=== PATIENT | female | born 1940 | race Caucasian/White ===

== ENCOUNTER 2016-07-01 09:21 | Day surgery (SDC) | payer MEDICARE, OTHER ==
[~2016-07-01] VITALS: Ht 165.1 cm; Wt 88.0 kg
[~2016-07-01 09:21] MED LIST: 0.9% Sodium Chloride 1,000 ML IV SCH; ATRV10T PO; CITA10TA14 PO; FENO48TA15 PO; HYDR12.5 PO; Lactated Ringer's 1,000 ML IV ONE; Lidocaine PF 2% 5 mL Inj MUC_MEMBRM PRN; Lidocaine PF 2% 5 mL Inj MUC_MEMBRM SCH; Lidocaine Topical 2% 30 mL Jelly MUC_MEMBRM PRN; METF500T4 PO; METO25TA6 PO; Sodium Chloride LOK Flush 10 mL Syringe IVFLUSH PRN; TELM20TA PO; WARF3TAB PO; fentaNYL-PF 50 mCg/mL 2 mL Inj IVPUSH PRN
[2016-07-01] MEDS ORDERED: Propofol 10,000 mCg/mL 20 mL Inj ONE (09:22)
[2016-07-01] MEDS ORDERED: Ketamine 10 mg/mL 20 mL Inj ONE (09:22)
[2016-07-01] MEDS ORDERED: EPINEPHrine 0.1 mg/mL 10 mL Syringe IV ONE (09:22)
[2016-07-01 10:07] VITALS: BP 138/70; PULSE 86; RESP 22; O2SAT 98
[2016-07-01] MEDS ORDERED: ACET-2605 PO (10:40)
[2016-07-01] MEDS ORDERED: DILT180C83 PO (10:40)
[2016-07-01] MEDS ORDERED: ZLP5T PO (10:40)
[2016-07-01] MEDS ORDERED: DXPN25C PO (10:40)
[2016-07-01] MEDS ORDERED: ASPI-973 PO (10:40)
--- NOTE | 2016-07-01 12:06 | PCM.HPANE ---
Patient Data Surgeon Admitting Provider: Attending Provider:Camryn Barber MD Primary Care Physician:Santo Ramirez MD Other Provider: Reason for Visit Right Lung Squamous Cell Carcinoma Ht/WT & BMI Height (Feet): 5 Height (Inches): 5 Weight (Kilograms): 88 Body Mass Index 32.00 Allergies Coded Allergies: bee venom protein (honey bee) (Verified Allergy, Severe, 07/01/16) petrolatum,white (Verified Allergy, Intermediate, RASH, 07/01/16) Penicillins (Verified Allergy, Unknown, 06/30/16) adhesive tape (Verified Allergy, Unknown, 07/01/16) Uncoded Allergies: Penicillin (Allergy, Unknown, 10/03/04) Past Anesthesia History Anesthesia History: Denies:: Abnormal Airway, Anesthesia Reactions, Difficult Intubation, Fam Anesthesia Reaction, Fam Malignant Hypertherm, Malignant Hyperthermia Diabetes History Hx Diabetes?: Yes Current Bedside Blood Glucose: 91 MRSA MRSA: No Medications Blood Thinner: Aspirin, Coumadin Last Dose Blood Thinner: Jun 21, 2016 Home Meds Incl Beta Trudi: Yes Date Beta Trudi Taken: Jul 01, 2016 Time Beta Trudi Taken: 0500 Reported Medications Zolpidem (Ambien)5 Mg Tablet5 Mg PO HS PRN For Insomnia Ref 0 07/01/16 Acetaminophen/Diphenhydramine (Tylenol Pm Ex-Strength Caplet)500 Mg-25 Mg Tablet1 Each PO 07/01/16 Doxepin 25 Mg [id number] Mg PO HS 30 Days 07/01/16 Aspirin 81 Mg Divtxc93 Mg PO DAILY Ref 0 07/01/16 Diltiazem ER 180 Mg Cap.[id number] Mg PO DAILY Ref 0 07/01/16 Warfarin Sodium (Coumadin)3 Mg Tablet3 Mg PO DAILY 30 Days Ref 0 06/30/16 Telmisartan (Micardis)20 Mg Tablet1 Tablet PO DAILY 06/30/16 Metoprolol Tartrate 25 Mg Tablet1 Tablet PO BID 30 Days Ref 0 06/30/16 Metformin 500 Mg Tablet1 Tablet PO TID Ref 0 06/30/16 Atorvastatin (Lipitor)10 Mg Tab1 Tablet PO DAILY Ref 0 06/30/16 Hydrochlorothiazide 12.5 Mg Capsule1 Tablet PO DAILY 30 Days Ref 0 06/30/16 Citalopram Hydrobromide (Celexa)10 Mg Tablet1 Mg PO DAILY Ref 0 06/30/16 Discontinued Reported Medications Fenofibrate (Tricor)48 Mg Tablet1 Tablet PO DAILY 30 Days Ref 0 06/30/16 Clopidogrel Bisulfate (Plavix)75 Mg Tablet1 Tablet PO DAILY 30 Days Ref 0 06/30/16 History HEENT History: Denies:: Abnormal Airway Difficult Intubation Dysphagia Hearing Problem Denture Type: Full- Upper Full- Lower Teeth Condition: Missing Teeth Hx of Heart Problems?: Yes Cardiovascular History: Positive for:: Atrial Fibrillation Hypertension Denies:: AICD Chest Pain Pacemaker Valvular Heart Disease Other Cardiac History: 2 STENTS PLACED Hx of Respiratory Problem?: Yes Respiratory History: Positive for:: Cough Denies:: Asthma COPD Hemoptysis Pneumonia Tuberculosis Other Resp Pertinent History: RIGHT LUNG MASS ON 2L O2 VIA NASAL CANNULA Neurological History: Denies:: CVA Hx of GI Problems?: Yes Gastrointestinal History: Positive for:: Gastroesphageal Reflux Denies:: Gall Bladder Disease Liver Disease Musculoskeletal History: Positive for:: Joint Replacement (RT SHOULDER) Denies:: Fibromyalgia Psycho Social History: Positive for:: Anxiety Hx Depression Hx Surgeries?: Yes (RT LOBECTOMYRIGHT SHOULDER) Hx Any Other Health Problems?: Yes Hx Diabetes: YesBedside Blood Glucose: 91 Hx Alcohol Use: No Stop/Bang Treated for Sleep Apnea?: Yes Do You Have a CPAP Machine?: Yes RAQUEL Risk Assessment: High Risk, =/>3 Yes RAQUEL Category 2: Yes RAQUEL Category 4 OutPt Procedure: Yes Risk Assessment Category Category 1A: Patient has history of documented sleep apnea, and HAS NOT received any narcotic, sedative or anesthesia administration during this stay. Category 1B: Patient has history of documented sleep apnea, and HAS received any narcotic , sedative or anesthesia administration during this stay Category 2: Patient has SUSPECTED Obstructive Sleep Apnea, and HAS received any narcotic , sedative or anesthesia administration during this stay. Category 3: Patient has SUSPECTED Obstructive Sleep Apnea and HAS NOT received narcotic, sedative or anesthesia administration during this stay. Category 4: Outpatient in Procedural Areas with known sleep apnea or who screen positive for High Risk via the STOP/BANG questionnaire. Exam Exam Vital Signs Vital Signs Date Time Temp Pulse Resp B/P Pulse Ox O2 Delivery O2 Flow Rate FiO2 07/01/16 10:07 36.3 86 22 138/70 98 Nasal Cannula 2 General Appearance: Alert, Oriented X3, Cooperative, No Acute Distress HEENT/AIRWAY: MP 2 Lungs: Clear to Auscultation, Normal Air Movement Heart: Exam Unremarkable, Regular Rate/Rhythm, No Murmurs/Rubs/Gallops Meds/Labs/Diagnostics Bedside Blood Glucose: 91 Plan Impression Patient chart reviewed, patient interviewed and anesthestic plan with risks, benefits, and alternatives discussed, and informed consent obtained. ASA Physical Status: ASA3 Severe Disease Anesthetic Plan: MAC Bene/Risks/Altern/Consents: Yes HP Complete Prior to Induction: Yes Tyrone Nur MD Jul 01, 2016 12:06
[2016-07-01] MEDS ORDERED: Lactated Ringer's 1,000 ML IV SCH (12:07)
[2016-07-01] MEDS ORDERED: MetoCLOpramide 5 mg/mL 2 mL Inj IVPUSH PRN (12:10)
[2016-07-01] MEDS ORDERED: Ondansetron 2 mg/mL 2 mL Inj IVPUSH PRN (12:10)
[2016-07-01] MEDS ORDERED: Lidocaine PF 2% 10 mL Inj ONE (12:19)
--- NOTE | 2016-07-01 13:40 | PCM.ANEP1 ---
Post Anesthesia Phase 1 PACU Phase 1 Assessment Vital Signs Vital Signs Date Time Temp Pulse Resp B/P Pulse Ox O2 Delivery O2 Flow Rate FiO2 07/01/16 10:07 36.3 86 22 138/70 98 Nasal Cannula 2 Anesthetic Administered: MAC Level of Alertness: Awake, talking BRADSHAW's with Equal Strength: Yes Pain: No Nausea or Vomiting: No Oxygen Delivery: Nasal Cannula Lungs: Clear to Auscultation, Normal Air Movement Dermatome Level: Full Sensation Tyrone Nur MD Jul 01, 2016 13:40
[2016-07-01 13:41] VITALS: BP 164/92; PULSE 97; RESP 16; O2SAT 96
--- NOTE | 2016-07-01 13:41 | PCM.ANEP2 ---
Post Anesthesia Evaluation ASA/CMS Post Anesthesia VS in Patient's Normal Range?: Yes Resp Stable; Airway Patent?: Yes CV Function & Hydration Stable: Yes Mental Status Recovered?: Yes Pain control Satisfactory?: Yes N/V Control Satisfactory?: Yes Tyrone Nur MD Jul 01, 2016 13:40
[2016-07-01 13:50] VITALS: BP 164/92; PULSE 94; RESP 12; O2SAT 97
--- NOTE | 2016-07-01 15:57 | DRSVH ---
PROCEDURE: X-RAY CHEST ONE VIEW, PORTABLE ([id number]) INDICATIONS: RULE OUT PNEUMO, RECOVERY ENDO TECHNIQUE: One view of the chest was acquired. COMPARISON: [facility], CT, CT [place], 11/13/2015, 10:22. FINDINGS: Surgical changes and devices: Right humeral arthroplasty. Lungs and pleura: There is a prominent right middle lobe opacity, corresponding to previously identif ied mass lesion. No visualized pneumothorax. Mediastinum: Mediastinal contours appear normal. Heart size is normal. Bones and chest wall: No suspicious bony lesions. Overlying soft tissues appear unremarkable. IMPRESSION: Prominent right middle lobe opacity corresponding to previously identified mass lesion. N o pneumothorax. Dictated by: Lesli Ulrich M.D. on 07/01/2016 at 14:54 Approved by: Lesli Ulrich M.D. on 07/01/2016 at 14:56
--- NOTE | 2016-07-02 01:16 | ENDO ---
[address] [address] ENDOSCOPY PROCEDURE PATIENT: NORMAN ESTRADA : 1940 MR#: [id number] ADMIT: 07/01/2016 JOB ID: [id number] DATE OF PROCEDURE: 07/01/2016 PROCEDURE: Bronchoscopy procedure performed by Camryn Barber MD, Pulmonary Medicine. INDICATION: Right middle lobe collapse, squamous cell carcinoma of the right lung. Informed consent was obtained from the patient after risks and benefits of the procedure were discussed. DESCRIPTION: The patient was asked to gargle lidocaine. Additional lidocaine was administered via atomizer. The scope was passed through the mouth after IV sedation was started by anesthesiologist. Epiglottis and vocal cords were visualized and normal in appearance. The scope was passed through the cords. Trachea was visualized and normal in appearance. The brynn and complete right and left-sided airway inspection was performed. On the left side, all airways were normal and patent, on the right side as well. The only notable abnormality was narrowed right middle lobe orifice. The scope could be passed into the orifice but not beyond. There was narrowing of the airway without any mucosal abnormality, tumor or endobronchial mass visible. Appearance seemed to me more likely consistent with stricture than malignancy. Around six or seven endobronchial biopsies were taken in the right middle lobe orifice and beyond. The patient had some bleeding with this that subsided with administration of topical epinephrine. FINDINGS: Narrowed right middle lobe orifice. Scope could be passed into but not beyond the orifice. No evidence of endobronchial mass/tumor. Mucosa was normal. SAMPLES: Around six right middle lobe endobronchial biopsies were taken. COMPLICATIONS: Patient desaturated to the mid 70s, but this seemed to be upper airway occlusion. This recovered very quickly. Procedure was stopped a little bit early because of repeated desaturations from airway occlusion. She had about 10 cc estimated blood loss. MEDICATIONS: Please refer to anesthesia record. She received about 11 cc of lidocaine, 4 cc of diluted epinephrine from pa, and propofol from the anesthesiologist. Portable chest x-ray is pending to rule out pneumothorax.
--- NOTE | 2016-07-06 12:03 | PATH ---
SURGICAL PATHOLOGY Attending Physician:Camryn Barber MD CASE STATUS: Signed Out PATIENT NAME: NORMAN ESTRADA PID: [id number] : 1940 DATE COLLECTED:07/01/2016 00:00 SPECIMEN: Lung Biopsy CLINICAL HISTORY: RML COLLAPSE, KNOWN SQUAMOUS CELL CA R LUNG 1) . RIGHT MIDDLE LUNG LOBE BIOPSY FINAL DIAGNOSIS: 1.RIGHT LUNG, MIDDLE LOBE, BIOPSY: BRONCHIAL MUCOSA WITH NO EVIDENCE OF NEOPLASM. SEE COMMENT. ICD10 code J98.09 NOTE: There are rare submucosal calcifications in the submucosa, which could be compatible with the reported history of prior radiation. No significant chronic or active inflammation is identified. Dr. Tracy discussed the preliminary findings with Dr. Camryn Barber on 07/05/16. Additional levels were examined. GROSS DESCRIPTION: Received in formalin, labeled with the patient' s name and "right lung biopsy", are multiple fragments of dark coreas tissue measuring 0.3 x 0.3 x 0.1 cm in aggregate. All fragments are totally submitted in one cassette. ([id number]) MICRO DESCRIPTION: See diagnosis. ICD-9 CODES: CPT CODES: 1: 60606 Electronically Signed Out Cassandra Tracy MD [facility] Pathology [facility] [address], [place] [address] Technical component performed at [facility], [facility] [address], [place], [address]
== END 2016-07-01 23:59 | disposition home or self-care (01) ==
LOC: END 09:21
PROVIDERS: ATTEND Internal Medicine Critical Care Medicine
DX: C34.91 Malignant neoplasm of unspecified part of right bronchus or lung (principal); J98.11 Atelectasis; J98.09 Other diseases of bronchus, not elsewhere classified; G47.33 Obstructive sleep apnea (adult) (pediatric); E78.5 Hyperlipidemia, unspecified; I48.91 Unspecified atrial fibrillation; E11.9 Type 2 diabetes mellitus without complications; I25.10 Atherosclerotic heart disease of native coronary artery without angina pectoris; I82.401 Acute embolism and thrombosis of unspecified deep veins of right lower extremity; Z87.891 Personal history of nicotine dependence; Z92.3 Personal history of irradiation; Z92.21 Personal history of antineoplastic chemotherapy; Z95.5 Presence of coronary angioplasty implant and graft; Z79.82 Long term (current) use of aspirin; Z79.84 Long term (current) use of oral hypoglycemic drugs; Z79.01 Long term (current) use of anticoagulants
CPT/HCPCS: 31625; 71010; 88305; J0171; J7120